=== PATIENT | female | born 1980 | race Caucasian/White ===

== ENCOUNTER 2018-03-05 15:39 | Emergency (ER) | payer BC ==
[2018-03-05 15:39] VITALS: BMI 28.0
[2018-03-05 17:22] LABS: BASO % 0.5 % (0.0-2.0); EOS # 0.1 K/uL (0.0-0.7); EOS % 0.9 % (0.0-4.0); HEMOGLOBIN 12.1 g/dL (11.0-16.0); LYMPH # 1.6 K/uL (1.0-4.3); MEAN CELL VOLUME 92.1 fL (81.0-99.0); MEAN CORPUSCULAR HEMOGLOBIN 32.4 pg (27.0-31.0); MEAN CORPUSCULAR HGB CONC 35.1 g/dL (33.0-37.0); MEAN PLATELET VOLUME 7.7 fL (7.2-11.7); MONO # 0.5 K/uL (0.0-0.8); MONO % 6.3 % (0.0-10.0); NEUT # 6.4 K/uL (1.8-7.0); NEUT % 74.3 % (50.0-75.0); NRBC % 0.1 % (0.0-2.0); RBC 3.74 Mil/uL (3.80-5.20); RED CELL DISTRIBUTION WIDTH 13.9 % (11.5-14.5); WHITE BLOOD COUNT 8.6 K/uL (4.8-10.8)
[2018-03-05 17:23] LABS: HCG,QUALITATIVE URINE POSITIVE (NEGATIVE)
--- NOTE | 2018-03-05 17:26 | C.PDOC ---
History Of Present Illness <Merlyn Hope - Last Filed: 03/05/18 19:13> <Mariam Ahmadi - Last Filed: 03/05/18 20:56> <Cam Persaud - Last Filed: 03/07/18 13:35> 38 y/o female A1 17 weeks presents to ED with c/o right lower back pain radiating to right leg and pelvis since this noon today. Pt notes the pain is worse with movement. She has had pre wyatt care with Dr. Dorman. Denies trauma, dysuria, vaginal bleeding/discharge, fever, change in sensation, incontinence, nausea, vomiting or any other complaints at this time. (Merlyn Hope) 38 y/o female A1 17 weeks presents to ED with c/o right lower back pain radiating to right leg and pelvis since this noon today. Pt notes the pain is worse with movement. She has had pre care with Dr. Dorman. Denies trauma, dysuria, vaginal bleeding/discharge, fever, change in sensation, incontinence, nausea, vomiting or any other complaints at this time. (Mariam Ahmadi) 38 y/o female A1 17 weeks presents to ED with c/o right lower back pain radiating to right leg and pelvis since this noon today. Pt notes the pain is worse with movement. She has had pre care with Dr. Dorman. Denies trauma, dysuria, vaginal bleeding/discharge, fever, change in sensation, incontinence, nausea, vomiting or any other complaints at this time. (Cam Persaud) History Per: Patient History/Exam Limitations: no limitations Onset/Duration Of Symptoms: Days Current Symptoms Are (Timing): Still Present <Merlyn Hope - Last Filed: 03/05/18 19:13> <Mariam Ahamdi - Last Filed: 03/05/18 20:56> <Cam Persaud - Last Filed: 03/07/18 13:35> Time Seen by Provider: 03/05/18 16:17 Chief Complaint (Nursing): Abdominal Pain Past Medical History Reviewed: Historical Data, Nursing Documentation, Vital Signs - Medical History PMH: No Chronic Diseases Surgical History: No Surg Hx Family History: States: No Known Family Hx - Social History Hx Tobacco Use: No Hx Alcohol Use: No Hx Substance Use: No - Immunization History Hx Tetanus Toxoid Vaccination: Yes Hx Influenza Vaccination: Yes Hx Pneumococcal Vaccination: No <Merlyn Hope - Last Filed: 03/05/18 19:13> Vital Signs: Last Vital Signs Temp 98.4 F 03/05/18 21:21 Pulse 91 H 03/05/18 21:21 Resp 14 03/05/18 21:21 BP 101/59 L 03/05/18 21:21 Pulse Ox 98 03/05/18 21:21 - [facility] Procedures DELIVERY OF PRODUCTS OF CONCEPTION, EXTERNAL APPROACH (09/28/15) DIVISION OF FEMALE PERINEUM, EXTERNAL APPROACH (09/28/15) Review Of Systems Constitutional: Negative for: Fever, Chills Gastrointestinal: Positive for: Abdominal Pain. Negative for: Nausea, Vomiting Musculoskeletal: Positive for: Back Pain, Leg Pain Skin: Negative for: Rash <Merlyn Hope - Last Filed: 03/05/18 19:13> Physical Exam - Physical Exam Appears: Non-toxic, No Acute Distress Skin: Warm, Dry, No Rash Head: Atraumatic, Normacephalic Eye(s): bilateral: Normal Inspection, EOMI Nose: Normal Oral Mucosa: Moist Neck: Normal ROM, Supple Chest: Symmetrical Cardiovascular: Rhythm Regular Respiratory: Normal Breath Sounds, No Rales, No Rhonchi, No Wheezing Gastrointestinal/Abdominal: Soft, Tenderness (Right pelvic), No Guarding, No Rebound, Other (gravid abdomen consistent with dates) Back: No CVA Tenderness, No Vertebral Tenderness, Paraspinal Tenderness ((+) right buttock tenderness) Extremity: Normal ROM, Capillary Refill (<2 seconds), No Deformity Neurological/Psych: Oriented x3, Normal Speech, Normal Cognition <Merlyn Hope - Last Filed: 03/05/18 19:13> ED Course And Treatment - Laboratory Results Result Diagrams: 03/05/18 17:12 03/05/18 17:12 O2 Sat by Pulse Oximetry: 95 (RA) Pulse Ox Interpretation: Normal Progress Note: Blood work, UA, Pelvis US. Pt was seen and evaluated by Dr Persaud, agreed upon plan and treatment. Case endorsed to Dr Ahmadi pending US and re-evaluation. <Merlyn Hope - Last Filed: 03/05/18 19:13> - Laboratory Results Result Diagrams: 03/05/18 17:12 03/05/18 17:12 Pulse Ox Interpretation: Normal Reevaluation Time: 20:56 Reassessment Condition: Improved <Mariam Ahmadi - Last Filed: 03/05/18 20:56> - Laboratory Results Result Diagrams: 03/05/18 17:12 03/05/18 17:12 <Cam Persaud - Last Filed: 03/07/18 13:35> Medical Decision Making <Merlyn Hope - Last Filed: 03/05/18 19:13> <Mariam Ahmadi - Last Filed: 03/05/18 20:56> <Cam Persaud - Last Filed: 03/07/18 13:35> Medical Decision Making: case s/o to Dr. Ahmadi at 1900 (Cam Persaud) Disposition - Disposition Disposition Time: 18:58 <Merlyn Hope - Last Filed: 03/05/18 19:13> Counseled Patient/Family Regarding: Studies Performed, Diagnosis, Need For Followup <Mariam Ahmadi - Last Filed: 03/05/18 20:56> <Cam Persaud - Last Filed: 03/07/18 13:35> - Disposition Disposition: HOME/ ROUTINE Condition: STABLE Additional Instructions: Vaya a small mdico o la clnica en 2-5 mosquera sin falta, para mas evaluacin. Volver a la kunal de emergencia en cualquier momento si los sntomas persisten o empeoran. Prescriptions: Acetaminophen [Tylenol 325mg tab] 650 mg PO Q4 PRN #20 tab PRN Reason: Pain, Mild (1-3) Instructions: Low Back Pain (DC) Forms: [employer] (Tajik) Print Language: CROATIAN - Clinical Impression Clinical Impression: Abdominal pain, Back pain - PA / STORE LEADER / Resident Statement MD/DO has reviewed & agrees with the documentation as recorded. - Scribe Statement The provider has reviewed the documentation as recorded by the Scribe <Merlyn Hope - Last Filed: 03/05/18 19:13> <Mariam Ahmadi - Last Filed: 03/05/18 20:56> <Cam Persaud - Last Filed: 03/07/18 13:35> - Scribe Statement Bryan Nevarezta All medical record entries made by the Scribe were at my direction and personally dictated by me. I have reviewed the chart and agree that the record accurately reflects my personal performance of the history, physical exam, medical decision making, and the department course for this patient. I have also personally directed, reviewed, and agree with the discharge instructions and disposition. (Merlyn Hope) Yuditesfaye Peña All medical record entries made by the Scribe were at my direction and personally dictated by me. I have reviewed the chart and agree that the record accurately reflects my personal performance of the history, physical exam, medical decision making, and the department course for this patient. I have also personally directed, reviewed, and agree with the discharge instructions and disposition. (Mariam Ahmadi) Bryan Peña All medical record entries made by the Scribe were at my direction and personally dictated by me. I have reviewed the chart and agree that the record accurately reflects my personal performance of the history, physical exam, medical decision making, and the department course for this patient. I have also personally directed, reviewed, and agree with the discharge instructions and disposition. (Cam Persaud)
[2018-03-05 17:30] LABS: SQUAMOUS EPITHIAL 22 /hpf (0-5); URINE BACTERIA OCC (<OCC); URINE BILIRUBIN NEGATIVE (NEGATIVE); URINE BLOOD 1+ (NEGATIVE); URINE CALCIUM OXALATE CRYSTALS OCC /hpf (<OCC); URINE CLARITY Hazy (Clear); URINE COLOR Yellow (YELLOW); URINE GLUCOSE (UA) NORMAL (Normal); URINE LEUKOCYTE ESTERASE 1+ Leu/uL (Negative); URINE PROTEIN NEGATIVE (NEGATIVE); URINE UROBILINOGEN NORMAL mg/dL (0.2-1.0)
[2018-03-05 17:36] LABS: ALB/GLOB RATIO 1.1 (1.0-2.1); ALBUMIN 3.5 g/dL (3.5-5.0); ALT/SGPT 12 U/L (9-52); AST/SGOT 13 U/L (14-36); BLOOD UREA NITROGEN 5 mg/dL (7-17); CALCIUM 8.8 mg/dl (8.6-10.4); GFR NON-AFRICAN AMERICAN > 60
--- NOTE | 2018-03-05 18:29 | US ---
Date of service: 03/05/2018 PROCEDURE: OB Pelvic Ultrasound HISTORY: preg, pain right sided LMP: 10/29/2017 COMPARISON: None available. FINDINGS: UTERUS: Placenta: Posterior Presentation: Cephalic BPD: 4.1 cm compatible with estimated gestational age of 18 weeks, 4 days HC: 15.2 cm compatible with estimated gestational age of 18 weeks, 2 days AC: 12.7 cm compatible with estimated gestational age of 18 weeks, 2 days FL: 2.8 cm compatible with estimated gestational age of 18 weeks, 4 days Heart rate: 130 bpm. age (Ultrasound estimated): 18 weeks, 3 days Erin-gestational hemorrhage: None. Date of delivery (Ultrasound estimated) : 08/03/2018 CERVIX: Measures 4.5 cm. Long and closed. No cervical abnormality seen. FREE FLUID: None. OTHER FINDINGS: None. IMPRESSION: Single live intrauterine gestation with average ultrasound age of 18 weeks, 3 days. heart rate 131 beats per minute. Cervix long and closed.
[2018-03-05 21:22] VITALS: BP 101/59; PULSE 91; RESP 14; TEMP 98.4; O2SAT 98
--- NOTE | 2018-03-06 09:50 | US ---
Date of service: 03/05/2018 PROCEDURE: Ultrasound of the Kidneys HISTORY: pain COMPARISON: None available. TECHNIQUE: Sonogram of the kidneys. FINDINGS: RIGHT KIDNEY: Measures: 11.8 cm. Normal in size, contour and echogenicity. No stone, solid mass lesion or hydronephrosis visualized. LEFT KIDNEY: Measures: 11.8 cm. Normal in size, contour and echogenicity. No stone, solid mass lesion or hydronephrosis visualized. OTHER FINDINGS: Urinary bladder poorly distended. Limited evaluation. IMPRESSION: Unremarkable renal sonogram.
== END 2018-03-05 21:22 | disposition home or self-care (01) ==
LOC: C.ER 15:39
DX: O26.892 Other specified pregnancy related conditions, second trimester (principal); M54.5 Low back pain; R10.9 Unspecified abdominal pain; Z3A.17 17 weeks gestation of pregnancy

== ENCOUNTER 2018-03-07 16:27 | Inpatient (IN) | payer BC ==
[2018-03-07 16:31] VITALS: BMI 24.4
[2018-03-07] MEDS ORDERED: Sodium Chloride 0.9% 1,000 ML IV ONE ×2 (16:47→19:33)
[2018-03-07 17:10] LABS: BASO # 0.1 K/uL (0.0-0.2); BASO % 0.7 % (0.0-2.0); EOS # 0.1 K/uL (0.0-0.7); EOS % 0.5 % (0.0-4.0); HEMOGLOBIN 12.7 g/dL (11.0-16.0); LYMPH # 2.2 K/uL (1.0-4.3); LYMPH % 17.2 % (20.0-40.0); MEAN CELL VOLUME 92.9 fL (81.0-99.0); MEAN CORPUSCULAR HEMOGLOBIN 32.8 pg (27.0-31.0); MEAN CORPUSCULAR HGB CONC 35.3 g/dL (33.0-37.0); MEAN PLATELET VOLUME 7.4 fL (7.2-11.7); MONO # 0.6 K/uL (0.0-0.8); MONO % 4.8 % (0.0-10.0); NEUT # 9.7 K/uL (1.8-7.0); NEUT % 76.8 % (50.0-75.0); NRBC % 0.1 % (0.0-2.0); RBC 3.87 Mil/uL (3.80-5.20); RED CELL DISTRIBUTION WIDTH 13.9 % (11.5-14.5); WHITE BLOOD COUNT 12.6 K/uL (4.8-10.8)
[2018-03-07] MEDS ORDERED: Sodium Chloride 0.9% 1,000 ML ONE ×2 (17:11→19:52)
[2018-03-07] MEDS ORDERED: Morphine 4 MG/ML VIAL ONE ×3 (17:12→19:05)
[2018-03-07 17:28] LABS: ALB/GLOB RATIO 1.1 (1.0-2.1); ALBUMIN 3.8 g/dL (3.5-5.0); ALT/SGPT 19 U/L (9-52); AST/SGOT 15 U/L (14-36); BLOOD UREA NITROGEN 7 mg/dL (7-17); CALCIUM 8.9 mg/dl (8.6-10.4); GFR NON-AFRICAN AMERICAN > 60; LIPASE 54 U/L (23-300)
--- NOTE | 2018-03-07 18:12 | C.PDOC ---
History Of Present Illness 38 year old female 18 weeks presents to the ED for evaluation of worsening right lower quadrant pain since today. Reports she was pain free yesterday but today is in severe distress with no improvement. Pain is dull, aching, and boring. Grabs abdomen due pain. Patient previously had a pelvic ultrasound 03/05 at 18 weeks and a renal ultrasound which both appeared normal, without renal hydronephrosis. Denies vaginal bleeding, fever, and any other associated symptoms. Time Seen by Provider: 03/07/18 16:40 Chief Complaint (Nursing): Abdominal Pain History Per: Patient History/Exam Limitations: no limitations Onset/Duration Of Symptoms: Hrs Current Symptoms Are (Timing): Still Present Location Of Pain/Discomfort: RLQ Past Medical History Reviewed: Historical Data, Nursing Documentation, Vital Signs Vital Signs: Last Vital Signs Temp 98.4 F 03/07/18 16:49 Pulse 81 03/07/18 17:25 Resp 18 03/07/18 17:25 BP 104/66 03/07/18 16:49 Pulse Ox 98 03/07/18 17:25 - Medical History PMH: Denies: Chronic Kidney Disease - [facility] Procedures DELIVERY OF PRODUCTS OF CONCEPTION, EXTERNAL APPROACH (09/28/15) DIVISION OF FEMALE PERINEUM, EXTERNAL APPROACH (09/28/15) Family History: States: Unknown Family Hx - Social History Hx Tobacco Use: No Hx Alcohol Use: No Hx Substance Use: No - Immunization History Hx Tetanus Toxoid Vaccination: Yes Hx Influenza Vaccination: Yes Hx Pneumococcal Vaccination: No Review Of Systems Except As Marked, All Systems Reviewed And Found Negative. Constitutional: Positive for: Other (grabs belly due to pain). Negative for: Fever, Chills Gastrointestinal: Positive for: Vomiting, Abdominal Pain (right lower quadrant ) Genitourinary: Negative for: Vaginal Bleeding Physical Exam - Physical Exam Appears: Non-toxic, In Acute Distress Skin: Normal Color, Warm, Dry Head: Atraumatic, Normacephalic Eye(s): bilateral: Normal Inspection Oral Mucosa: Moist Neck: Normal ROM Chest: Symmetrical, No Deformity Cardiovascular: Rhythm Regular Respiratory: Other (no acute respiratory distress.) Gastrointestinal/Abdominal: Tenderness (right lower quadrant tenderness. ), Other (+mcburney's point tenderness.) Extremity: Normal ROM (x4) Neurological/Psych: Oriented x3, Normal Speech Gait: Steady ED Course And Treatment - Laboratory Results Result Diagrams: 03/07/18 17:06 03/07/18 17:06 Lab Interpretation: Abnormal (WBC increased from 9K, QHCG increased [id number] to [id number], UA neg.) Urine POC: Positive O2 Sat by Pulse Oximetry: 98 (RA) Pulse Ox Interpretation: Normal - CT Scan/US U/S ABD Other Rad Studies (CT/US): Read By Radiologist CT/US Interpretation: FINDINGS: The appendix is not visible. No abnormal fluid collections or masses identified. Progress Note: multiple round of morphine 4 mg to control pain, IVF Reevaluation Time: 20:34 Reassessment Condition: Improved - Physician Consult Information Outcome Of Conversation: 1899: d/w OBGYN Mr Teacher- will eval after OB US performed, recommends Surg consult and MRI to r/o AP Medical Decision Making Medical Decision Making: Plan: --Blood sent. --Urinalysis --U/S Limited Abdomen --U/S Pelvis --Given Morphine. Progress/Update: 1649: Discussed case with [employer] Work Supervisor, advised acute abdomen in women. She recommends order Limited right lower quadrant ultra sound to r/o AP and will f/u with pt. 2100: Surgical Max @ bedside, agrees, pt severe RLQ pain. Zosyn, IVF's 2144: d/w Dr. Yudi Jacobsen, Surgery Mr Teacher- declines to adm pt to Surgical service, will consult, supports MRI in AM Understands normal IUP noted on US tonight. 2149: Again, d/w Dr. Ross- OB Mr Teacher, declines to admit pt with suspected AP, will consult. Again, reaffirms no acute related issue. 2199: D/w Dr. Devine- Surgical- suggest adm pt to Medicine. Cannot accept pt on Consult, has AM surgery other institution 2219: d/w Dr. Queen, Hospitalist- cannot adm pt to Medicine without acute medical issue. Will consult PRN. 2229: Call to Dr. Knapp- Surgery Chair- pending call-back 2299: d/w Dr. Knapp, agrees pt admitted to Dr. Farhad Jacobsen (Surgeon Mr Teacher) and shall remain admitted to Dr. Yudi Jacobsen who shall manage this pt. May consult OBGYN. [employer] Work Supervisor again aware. Decision makin: No blood in urine and no h/o renal colic. LOW susp of R renal colic- normal renal US 2 days ago and no RBC's in urine, pain is boring and dull and not colicky, argue against renal colic. With normal IUP, no ectopic, no renal colic, and rising white count, highly suspicious for acute AP until proven otherwise. Zosyn started empirically. Unable to perform STAT MRI tonight, Pending MRI in AM Pt admitted initially to Dr. Yudi Jacobsen, later rescinded. Later supported to Admit to Surgeon Mr Teacher by Dr. Knapp, Surgical Chair Disposition Doctor Will See Patient In The: Hospital Counseled Patient/Family Regarding: Studies Performed, Diagnosis - Disposition Disposition: HOSPITALIZED Disposition Time: 21:00 Condition: FAIR - Clinical Impression Clinical Impression: Acute abdominal pain in right lower quadrant, with 18 completed weeks gestation - Scribe Statement The provider has reviewed the documentation as recorded by the Scribe (Ana Moran) Provider Attestation: All medical record entries made by the Scribe were at my direction and personally dictated by me. I have reviewed the chart and agree that the record accurately reflects my personal performance of the history, physical exam, medical decision making, and the department course for this patient. I have also personally directed, reviewed, and agree with the discharge instructions and disposition.
--- NOTE | 2018-03-07 18:19 | US ---
Date of service: 03/07/2018 PROCEDURE: Limited abdominal ultrasound HISTORY: RLQ, ? AP, limited US COMPARISON: None available. TECHNIQUE: Graded compression technique complete for assessment of the right lower quadrant FINDINGS: The appendix is not visible. No abnormal fluid collections or masses identified. IMPRESSION: Nonvisualization of the appendix. No significant findings identified.
[2018-03-07] MEDS ORDERED: Piperacill/Tazo 3.375gm in Dex 3.375 GM/50 ML BAG IVPB STA (20:28)
[2018-03-07 20:45] LABS: SQUAMOUS EPITHIAL < 1 /hpf (0-5); URINE BILIRUBIN NEGATIVE (NEGATIVE); URINE BLOOD NEGATIVE (NEGATIVE); URINE CLARITY Clear (Clear); URINE COLOR Yellow (YELLOW); URINE GLUCOSE (UA) NORMAL (Normal); URINE LEUKOCYTE ESTERASE NEG Leu/uL (Negative); URINE PROTEIN NEGATIVE (NEGATIVE); URINE UROBILINOGEN NORMAL mg/dL (0.2-1.0)
[2018-03-07] MEDS ORDERED: Piperacillin/Tazobact 3.375 gm 100 ML IVPB ONE (20:51)
[2018-03-07 22:24] VITALS: RESP 20
[2018-03-07] MEDS: Dextrose 5%/0.45% NS 1,000 ML IV SCH (22:46)
[2018-03-07] MEDS: Piperacillin/Tazobact 3.375 GM in Sodium Chloride 100 ML IVPB SCH (22:51)
--- NOTE | 2018-03-07 23:31 | CP.PCM.HP ---
<Denise Lozano - Last Filed: 03/08/18 00:33> History of Present Illness - History of Present Illness History of Present Illness: Surgery 38F 18 week came with RLQ abd pain. Pain started 3 days ago. Pt came to ED 3 days ago for R sided pain. UA showed Blood, RBC, leuk esterase, Oxalate crystals. PT was sent home. Pt came with persistent R sided pain. locared on RLQ and R back radiating to R leg. Reports nausea vomiting. PT had 3 episodes of vomiting. NOn bloody non bilious. Denies fever, diarrhea, CP, SOB, dysuria, hematuria, hematochezia, hematemesis, sick contact. Pt came from [place] in 2016. Ate spagghetti yesterday. Now pt is hungry and wishes to eat. Pt had ectopic in 2011 and had laparoscopic L salphingectomy per EMR. Pt reports that this is the first time having these symptoms. Pt had 2 vaginal delivery in the past in 2000 she had delivery at 3.5 month per chart. During this admission WBC is 12.6 and UA shows ketone. Pt had 12 mg of morphine in ED for pain. Zosyn started. PMH : delivery at 3.5 month, ectopic . UTI GBS PSH : laparoscopic L saphingectomy for ectopic in 2011, I and D of perineum for hematoma s/p delivery in 2015. FHX: Son at 9 month for pulmonary issues, father of blood cancer, sister breast CA SS: non smoker, non drinker, no drug abuse. Present on Admission - Present on Admission Any Indicators Present on Admission: No Review of Systems - Review of Systems Review of Systems: See HPI Past Patient History - Infectious Disease Hx of Infectious Diseases: None - Tetanus Immunizations Tetanus Immunization: Unknown - Past Social History Smoking Status: Never Smoked - CARDIAC Hx Cardiac Disorders: No - PULMONARY Hx Respiratory Disorders: No - NEUROLOGICAL Hx Neurological Disorder: No - HEENT Hx HEENT Problems: No - RENAL Hx Chronic Kidney Disease: No - ENDOCRINE/METABOLIC Hx Endocrine Disorders: No - HEMATOLOGICAL/ONCOLOGICAL Hx Blood Disorders: No - INTEGUMENTARY Hx Dermatological Problems: No - MUSCULOSKELETAL/RHEUMATOLOGICAL Hx Musculoskeletal Disorders: No - GASTROINTESTINAL Hx Gastrointestinal Disorders: No - GENITOURINARY/GYNECOLOGICAL Hx Genitourinary Disorders: No - PSYCHIATRIC Hx Substance Use: No - SURGICAL HISTORY Hx Surgeries: Yes Other/Comment: 2011, laparoscopic salpingectomy - ANESTHESIA Hx Anesthesia: Yes Hx Anesthesia Reactions: No Meds Allergies/Adverse Reactions: Allergies Allergy/AdvReac Type Severity Reaction Status Date / Time No Known Allergies Allergy Verified 03/07/18 16:31 Physical Exam - Constitutional Appears: In Acute Distress - Head Exam Head Exam: ATRAUMATIC, NORMAL INSPECTION, NORMOCEPHALIC - Eye Exam Eye Exam: EOMI, Normal appearance, PERRL Pupil Exam: NORMAL ACCOMODATION, PERRL - ENT Exam ENT Exam: Mucous Membranes Moist, Normal Exam - Neck Exam Neck exam: Positive for: Normal Inspection - Respiratory Exam Respiratory Exam: NORMAL BREATHING PATTERN - Cardiovascular Exam Cardiovascular Exam: REGULAR RHYTHM, +S1, +S2 - GI/Abdominal Exam GI & Abdominal Exam: Soft, Tenderness. absent: Distended, Firm, Guarding, Hernia, Pulsatile Mass, Rigid Additional comments: Gravid abdomen, fundus at umbilicus. RLQ TTP, R back TTP. - Exam Exam: NORMAL INSPECTION - Extremities Exam Extremities exam: Positive for: full ROM, normal inspection - Back Exam Back exam: NORMAL INSPECTION, tenderness - Neurological Exam Neurological exam: Alert, CN II-XII Intact, Normal Gait, Oriented x3, Reflexes Normal - Psychiatric Exam Psychiatric exam: Normal Affect, Normal Mood - Skin Skin Exam: Dry, Intact, Normal Color, Warm Results - Vital Signs Recent Vital Signs: Last Vital Signs Temp 98.7 F 03/07/18 22:05 Pulse 84 03/07/18 22:05 Resp 20 03/07/18 22:05 BP 103/64 03/07/18 22:05 Pulse Ox 98 03/07/18 23:16 - Labs Result Diagrams: 03/07/18 17:06 03/07/18 17:06 Labs: Laboratory Results - last 24 hr 03/07/18 03/07/18 03/07/18 17:06 17:06 17:06 WBC 12.6 H RBC 3.87 Hgb 12.7 Hct 36.0 MCV 92.9 MCH 32.8 H MCHC 35.3 RDW 13.9 Plt Count 260 MPV 7.4 Neut % (Auto) 76.8 H Lymph % (Auto) 17.2 L [place] % (Auto) 4.8 Eos % (Auto) 0.5 Baso % (Auto) 0.7 Neut # (Auto) 9.7 H Lymph # (Auto) 2.2 [place] # (Auto) 0.6 Eos # (Auto) 0.1 Baso # (Auto) 0.1 Sodium 136 Potassium 3.6 Chloride 103 Carbon Dioxide 20 L Anion Gap 16 BUN 7 Creatinine 0.4 L Est GFR ( Amer) > 60 Est GFR (Non-Af Amer) > 60 Random Glucose 97 Lactic Acid 2.6 H Calcium 8.9 Total Bilirubin 0.2 AST 15 ALT 19 Alkaline Phosphatase 75 Total Protein 7.2 Albumin 3.8 Globulin 3.4 Albumin/Globulin Ratio 1.1 Lipase 54 Beta HCG, Quant Urine Color Urine Clarity Urine pH Ur Specific [place] Urine Protein Urine Glucose (UA) Urine Ketones Urine Blood Urine Nitrate Urine Bilirubin Urine Urobilinogen Ur Leukocyte Esterase Urine RBC (Auto) Ur Squamous Epith Cells 03/07/18 03/07/18 17:06 20:35 WBC RBC Hgb Hct MCV MCH MCHC RDW Plt Count MPV Neut % (Auto) Lymph % (Auto) [place] % (Auto) Eos % (Auto) Baso % (Auto) Neut # (Auto) Lymph # (Auto) [place] # (Auto) Eos # (Auto) Baso # (Auto) Sodium Potassium Chloride Carbon Dioxide Anion Gap BUN Creatinine Est GFR ( Amer) Est GFR (Non-Af Amer) Random Glucose Lactic Acid Calcium Total Bilirubin AST ALT Alkaline Phosphatase Total Protein Albumin Globulin Albumin/Globulin Ratio Lipase Beta HCG, Quant 28805.00 Urine Color Yellow Urine Clarity Clear Urine pH 7.0 Ur Specific [place] 1.014 Urine Protein Negative Urine Glucose (UA) Normal Urine Ketones 1+ H Urine Blood Negative Urine Nitrate Negative Urine Bilirubin Negative Urine Urobilinogen Normal Ur Leukocyte Esterase Neg Urine RBC (Auto) 2 Ur Squamous Epith Cells < 1 Assessment & Plan - Assessment and Plan (Free Text) Assessment: 38 F geriatric high risk preganancy 18 week gestational age came with RLQ pain started 3 days ago DDX: passed renal stone, r/o appendicitis, round ligament pain, cutaneous nerve entrapment, Ovarian vein thrombophlebitis, UTI With h/o delivery at 3.5 month (15week) in 2012, h/o ectopic and being geriatric pregancy, pt is high risk for surgery requiring general anesthesia women were less likely to have appendicitis than age-matched, non women. Nausea, vomiting common features of early . Afebrile . VSS US reviewed. shows 18 week , appendix unvisualized. No free fluids. UA 03/05 blood, oxalate crystal, Leuk esterase, bacteria UA 03/07 ketone WBC 12.6 : Mild leukocytosis in is normal finding in women ( normal range 10-14k for pt). Leukocytosis may or may not be a sign of acute appendicitis in pt. MRI NPO IVF D5 1/2 NS @100 ABX zosyn NGT if vomits Intake and output Pain/nausea control OB consult DW Dr. Jacobsen <Alejandra Jacobsen - Last Filed: 03/09/18 08:41> Results - Vital Signs Recent Vital Signs: Last Vital Signs Temp 98.1 F 03/09/18 07:41 Pulse 73 03/09/18 07:41 Resp 20 03/09/18 07:41 BP 102/65 03/09/18 07:41 Pulse Ox 97 03/09/18 07:41 - Labs Result Diagrams: 03/08/18 07:21 03/08/18 07:21 Assessment & Plan - Assessment and Plan (Free Text) Plan: Seen and examined independent of resident staff. Agree with above
--- NOTE | 2018-03-07 23:58 | CP.PCM.CON ---
History of Present Illness - History of Present Illness History of Present Illness: 38 yr [id number] tenderness on right lowe quad at 18+weeks came with c/o rlq pain started in morning., ptr was here 3 days fabby olgauth same pqain. no n/v, no ctxs, vb , lof+fm obhx 2 x , 1 x ectopic pmh de med pnv all nkda psh lap salpingectomy soch de ve closed wbc elevated abd +tenderness on right lower quad Past Patient History - Infectious Disease Hx of Infectious Diseases: None - Tetanus Immunizations Tetanus Immunization: Unknown - Past Social History Smoking Status: Never Smoked - CARDIAC Hx Cardiac Disorders: No - PULMONARY Hx Respiratory Disorders: No - NEUROLOGICAL Hx Neurological Disorder: No - HEENT Hx HEENT Problems: No - RENAL Hx Chronic Kidney Disease: No - ENDOCRINE/METABOLIC Hx Endocrine Disorders: No - HEMATOLOGICAL/ONCOLOGICAL Hx Blood Disorders: No - INTEGUMENTARY Hx Dermatological Problems: No - MUSCULOSKELETAL/RHEUMATOLOGICAL Hx Musculoskeletal Disorders: No - GASTROINTESTINAL Hx Gastrointestinal Disorders: No - GENITOURINARY/GYNECOLOGICAL Hx Genitourinary Disorders: No - PSYCHIATRIC Hx Substance Use: No - SURGICAL HISTORY Hx Surgeries: Yes Other/Comment: 2011, laparoscopic salpingectomy - ANESTHESIA Hx Anesthesia: Yes Hx Anesthesia Reactions: No Meds Allergies/Adverse Reactions: Allergies Allergy/AdvReac Type Severity Reaction Status Date / Time No Known Allergies Allergy Verified 03/07/18 16:31 - Medications Medications: Current Medications Acetaminophen (Tylenol 325mg Tab) 650 mg PO Q6 PRN PRN Reason: Fever >100.4 F Dextrose/Sodium Chloride (Dextrose 5%/0.45% Ns 1000 Ml) 1,000 mls @ 100 mls/hr IV .Q10H [facility] Last Admin: 03/07/18 22:46 Dose: 100 mls/hr Piperacillin Sod/Tazobactam (Sod 3.375 gm/ Sodium Chloride) 100 mls @ 200 mls/hr IVPB Q8H [facility]; Protocol Last Admin: 03/07/18 22:51 Dose: Not Given Morphine Sulfate (Morphine) 2 mg IVP Q4 PRN PRN Reason: Pain, moderate (4-7) Ondansetron HCl (Zofran Inj) 4 mg IVP Q4 PRN PRN Reason: Nausea/Vomiting Results - Vital Signs Recent Vital Signs: Last Vital Signs Temp 98.7 F 03/07/18 22:05 Pulse 84 03/07/18 22:05 Resp 20 03/07/18 22:05 BP 103/64 03/07/18 22:05 Pulse Ox 98 03/07/18 23:16 - Labs Result Diagrams: 03/07/18 17:06 03/07/18 17:06 Labs: Laboratory Results - last 24 hr 03/07/18 03/07/18 03/07/18 17:06 17:06 17:06 WBC 12.6 H RBC 3.87 Hgb 12.7 Hct 36.0 MCV 92.9 MCH 32.8 H MCHC 35.3 RDW 13.9 Plt Count 260 MPV 7.4 Neut % (Auto) 76.8 H Lymph % (Auto) 17.2 L [place] % (Auto) 4.8 Eos % (Auto) 0.5 Baso % (Auto) 0.7 Neut # (Auto) 9.7 H Lymph # (Auto) 2.2 [place] # (Auto) 0.6 Eos # (Auto) 0.1 Baso # (Auto) 0.1 Sodium 136 Potassium 3.6 Chloride 103 Carbon Dioxide 20 L Anion Gap 16 BUN 7 Creatinine 0.4 L Est GFR ( Amer) > 60 Est GFR (Non-Af Amer) > 60 Random Glucose 97 Lactic Acid 2.6 H Calcium 8.9 Total Bilirubin 0.2 AST 15 ALT 19 Alkaline Phosphatase 75 Total Protein 7.2 Albumin 3.8 Globulin 3.4 Albumin/Globulin Ratio 1.1 Lipase 54 Beta HCG, Quant Urine Color Urine Clarity Urine pH Ur Specific [place] Urine Protein Urine Glucose (UA) Urine Ketones Urine Blood Urine Nitrate Urine Bilirubin Urine Urobilinogen Ur Leukocyte Esterase Urine RBC (Auto) Ur Squamous Epith Cells 03/07/18 03/07/18 17:06 20:35 WBC RBC Hgb Hct MCV MCH MCHC RDW Plt Count MPV Neut % (Auto) Lymph % (Auto) [place] % (Auto) Eos % (Auto) Baso % (Auto) Neut # (Auto) Lymph # (Auto) [place] # (Auto) Eos # (Auto) Baso # (Auto) Sodium Potassium Chloride Carbon Dioxide Anion Gap BUN Creatinine Est GFR ( Amer) Est GFR (Non-Af Amer) Random Glucose Lactic Acid Calcium Total Bilirubin AST ALT Alkaline Phosphatase Total Protein Albumin Globulin Albumin/Globulin Ratio Lipase Beta HCG, Quant 35526.00 Urine Color Yellow Urine Clarity Clear Urine pH 7.0 Ur Specific [place] 1.014 Urine Protein Negative Urine Glucose (UA) Normal Urine Ketones 1+ H Urine Blood Negative Urine Nitrate Negative Urine Bilirubin Negative Urine Urobilinogen Normal Ur Leukocyte Esterase Neg Urine RBC (Auto) 2 Ur Squamous Epith Cells < 1 Assessment & Plan - Assessment and Plan (Free Text) Assessment: 38 yr at 18weeksNO OB issues cervix 4.5 cm ob sono Plan: plan cont surgical/medicl ,management r/o appendectis cont pain management repeat blood work will continue follow - Date & Time Date: 03/08/18 Time: 08:00
[2018-03-08] MEDS: Piperacillin/Tazobact 3.375 GM in Sodium Chloride 100 ML IVPB SCH ×4 (06:03→21:43)
[2018-03-08 07:34] LABS: BASO # 0.1 K/uL (0.0-0.2); BASO % 0.5 % (0.0-2.0); EOS # 0.1 K/uL (0.0-0.7); EOS % 0.6 % (0.0-4.0); HEMOGLOBIN 11.4 g/dL (11.0-16.0); LYMPH # 1.8 K/uL (1.0-4.3); LYMPH % 13.9 % (20.0-40.0); MEAN CELL VOLUME 93.4 fL (81.0-99.0); MEAN CORPUSCULAR HEMOGLOBIN 32.3 pg (27.0-31.0); MEAN CORPUSCULAR HGB CONC 34.5 g/dL (33.0-37.0); MEAN PLATELET VOLUME 8.3 fL (7.2-11.7); MONO # 0.6 K/uL (0.0-0.8); MONO % 4.8 % (0.0-10.0); NEUT # 10.3 K/uL (1.8-7.0); NEUT % 80.2 % (50.0-75.0); RBC 3.53 Mil/uL (3.80-5.20); RED CELL DISTRIBUTION WIDTH 13.6 % (11.5-14.5); WHITE BLOOD COUNT 12.8 K/uL (4.8-10.8)
[2018-03-08 08:15] LABS: ALBUMIN 3.1 g/dL (3.5-5.0); ALT/SGPT 16 U/L (9-52); AST/SGOT 11 U/L (14-36); BLOOD UREA NITROGEN 3 mg/dL (7-17); CALCIUM 8.4 mg/dl (8.6-10.4); GFR NON-AFRICAN AMERICAN > 60
[2018-03-08] MEDS: Dextrose 5%/0.45% NS 1,000 ML IV SCH ×3 (08:16→17:27)
--- NOTE | 2018-03-08 10:02 | MRI ---
Date of service: 03/08/2018 PROCEDURE: MRI abdomen, limited. HISTORY: RLQ abd pain, ? AP COMPARISON: Not available TECHNIQUE: Multiplanar, multi sequence imaging of the abdomen was performed without intravenous gadolinium administration. FINDINGS: A fetus is identified in breech presentation. This is a 2nd trimester fetus. No gross anatomic abnormality is appreciated on this limited evaluation. The cervix is long and closed. A normal appendix is visualized. It is not distended. There is no periappendiceal inflammatory change or fluid collection. The cecum is unremarkable in appearance. The terminal ileum shows no abnormal signal. There is no gross evidence of bowel obstruction. There is no abnormal renal signal seen on the T2 weighted images. No evidence of pyelonephritis though this is of limited negative predictive value in the absence of intravenous gadolinium. The urinary bladder is poorly distended. The wall is grossly unremarkable in thickness. There is no pelvic lymphadenopathy. There is trace nonspecific ascites The ovaries are not specifically identified on this examination. There are no adnexal masses. IMPRESSION: No evidence of acute appendicitis. A normal appendix is identified. No additional pathologic diagnoses can be made on the basis of this examination. A 2nd trimester fetus is identified in breech presentation without gross anatomic abnormality. No adnexal masses.
--- NOTE | 2018-03-08 10:31 | US ---
Indication: , 18 weeks, right lower quadrant pain Comparison: OB limited performed 03/05/18 Technique: Real-time ultrasound was performed through the pelvis. Findings: There is a single living fetus in cephalic presentation. Amniotic fluid volume is within normal limits. Posterior placenta. The placenta is not previa. There are no adnexal masses or cysts evident. Cervix length measures approximately 4.5 cm. Small pelvic free fluid. Measurements and calculations: Fetus has a composite sonographic age of 18 weeks 4 days. This calculation is based on the biparietal diameter, head circumference, abdominal circumference, and femur length. Estimated heart rate 129 beats per min. Estimated weight 239.4 g. Impression: Single living fetus with a composite sonographic age of 18 weeks 4 days. Estimated heart rate 129 beats per min. The study was performed for the emergent evaluation of pain, and the whole anatomic survey of the fetus was not performed. This should be performed on an outpatient elective basis as clinically warranted. Preliminary impression was provided by [employer]on Lines.
[2018-03-08] MEDS: Lidocaine 5% Patch TD SCH (15:42)
--- NOTE | 2018-03-09 00:42 | CP.PCM.DIS ---
Provider - Provider Date of Admission: 03/07/18 20:29 Attending physician: Alejandra Jacobsen MD Consults: Dr Mare MIJARES Time Spent in preparation of Discharge (in minutes): 10 Hospital Course - Lab Results Lab Results: Most Recent Lab Values WBC 12.8 K/uL (4.8-10.8) H 03/08/18 07:21 RBC 3.53 Mil/uL (3.80-5.20) L 03/08/18 07:21 Hgb 11.4 g/dL (11.0-16.0) 03/08/18 07:21 Hct 32.9 % (34.0-47.0) L 03/08/18 07:21 MCV 93.4 fL (81.0-99.0) 03/08/18 07:21 MCH 32.3 pg (27.0-31.0) H 03/08/18 07:21 MCHC 34.5 g/dL (33.0-37.0) 03/08/18 07:21 RDW 13.6 % (11.5-14.5) 03/08/18 07:21 Plt Count 245 K/uL (130-400) 03/08/18 07:21 MPV 8.3 fL (7.2-11.7) 03/08/18 07:21 Neut % (Auto) 80.2 % (50.0-75.0) H 03/08/18 07:21 Lymph % (Auto) 13.9 % (20.0-40.0) L 03/08/18 07:21 [place] % (Auto) 4.8 % (0.0-10.0) 03/08/18 07:21 Eos % (Auto) 0.6 % (0.0-4.0) 03/08/18 07:21 Baso % (Auto) 0.5 % (0.0-2.0) 03/08/18 07:21 Neut # (Auto) 10.3 K/uL (1.8-7.0) H 03/08/18 07:21 Lymph # (Auto) 1.8 K/uL (1.0-4.3) 03/08/18 07:21 [place] # (Auto) 0.6 K/uL (0.0-0.8) 03/08/18 07:21 Eos # (Auto) 0.1 K/uL (0.0-0.7) 03/08/18 07:21 Baso # (Auto) 0.1 K/uL (0.0-0.2) 03/08/18 07:21 Sodium 135 mmol/L (132-148) 03/08/18 07:21 Potassium 3.7 mmol/L (3.6-5.2) 03/08/18 07:21 Chloride 106 mmol/L (98-107) 03/08/18 07:21 Carbon Dioxide 20 mmol/L (22-30) L 03/08/18 07:21 Anion Gap 12 (10-20) 03/08/18 07:21 BUN 3 mg/dL (7-17) L 03/08/18 07:21 Creatinine 0.4 mg/dL (0.7-1.2) L 03/08/18 07:21 Est GFR ( Amer) > 60 03/08/18 07:21 Est GFR (Non-Af Amer) > 60 03/08/18 07:21 Random Glucose 80 mg/dL (65-105) 03/08/18 07:21 Lactic Acid 1.2 mmol/L (0.7-2.1) 03/08/18 07:24 Calcium 8.4 mg/dl (8.6-10.4) L 03/08/18 07:21 Total Bilirubin 0.5 mg/dL (0.2-1.3) 03/08/18 07:21 AST 11 U/L (14-36) L D 03/08/18 07:21 ALT 16 U/L (9-52) 03/08/18 07:21 Alkaline Phosphatase 62 U/L (38-126) 03/08/18 07:21 Total Protein 6.1 g/dL (6.3-8.3) L 03/08/18 07:21 Albumin 3.1 g/dL (3.5-5.0) L 03/08/18 07:21 Globulin 3.0 gm/dL (2.2-3.9) 03/08/18 07:21 Albumin/Globulin Ratio 1.0 (1.0-2.1) 03/08/18 07:21 Lipase 54 U/L (23-300) 03/07/18 17:06 Beta HCG, Quant 13286.00 mIU/ML 03/07/18 17:06 Urine Color Yellow (YELLOW) 03/07/18 20:35 Urine Clarity Clear (Clear) 03/07/18 20:35 Urine pH 7.0 (5.0-8.0) 03/07/18 20:35 Ur Specific [place] 1.014 (1.003-1.030) 03/07/18 20:35 Urine Protein Negative mg/dL (NEGATIVE) 03/07/18 20:35 Urine Glucose (UA) Normal mg/dL (Normal) 03/07/18 20:35 Urine Ketones 1+ mg/dL (NEGATIVE) H 03/07/18 20:35 Urine Blood Negative (NEGATIVE) 03/07/18 20:35 Urine Nitrate Negative (NEGATIVE) 03/07/18 20:35 Urine Bilirubin Negative (NEGATIVE) 03/07/18 20:35 Urine Urobilinogen Normal mg/dL (0.2-1.0) 03/07/18 20:35 Ur Leukocyte Esterase Neg [place]/uL (Negative) 03/07/18 20:35 Urine RBC (Auto) 2 /hpf (0-3) 03/07/18 20:35 Ur Squamous Epith Cells < 1 /hpf (0-5) 03/07/18 20:35 - Hospital Course Hospital Course: Pt is a 38F who presented to ED with 3 days of RLQ pain accompanied by nausea and vomiting. Pt admitted for work-up given concern for appendicitis. Had Abdominal US which was non-diagnostic. Started on zosyn with IVF. Had MRI in AM which demonstrated normal appendix with no surrounding inflammation. HUMAN PERFORMANCE PROFESSOR was consulted who evaluated pt. Rec non-narcotic pain mgmt for "round ligament pain". No need for surgical intervention. Pt initially to be discharged but continued to complain of 10/10 pain, now complaining of pain in the head, back, legs, etc. Noted pt is frequently sleeping when enter the room. Does not appear in distress until questioned. Vitals have been normal. Not requiring pain medic ation. Will be d/c today with appropriate follow up with HUMAN PERFORMANCE PROFESSOR Discharge Exam - Head Exam Head Exam: ATRAUMATIC, NORMAL INSPECTION, NORMOCEPHALIC - Eye Exam Eye Exam: Normal appearance - ENT Exam ENT Exam: Normal Exam - Respiratory Exam Respiratory Exam: NORMAL BREATHING PATTERN - Cardiovascular Exam Cardiovascular Exam: REGULAR RHYTHM. absent: Tachycardia - GI/Abdominal Exam GI & Abdominal Exam: Soft, Tenderness (RLQ, suprapubic). absent: Distended, Firm - Neurological Exam Neurological exam: Alert, Oriented x3 Discharge Plan - Follow Up Plan Condition: GOOD Disposition: HOME/ ROUTINE
[2018-03-09 07:42] VITALS: BP 102/65; PULSE 73; TEMP 98.1; O2SAT 97
[2018-03-09] MEDS: Lidocaine 5% Patch TD SCH (10:20)
[2018-03-09] MEDS ORDERED: Influenza Vaccine 60 MCG/0.5 ML SYR (3 yr & up) IM ONE (12:00)
[2018-03-09] MEDS ORDERED: Pneumococcal 23-Valent Vaccine IM ONE (12:00)
--- NOTE | 2018-03-09 19:05 | CP.PCM.PN ---
<Mary Patel - Last Filed: 03/09/18 19:09> Subjective - Date & Time of Evaluation Date of Evaluation: 03/08/18 Time of Evaluation: 07:00 - Subjective Subjective: General surgery progress note for Dr. Marla Patel, PGY-2 Pt S & E at bedside Pt reports continued RLQ ab pain Objective - Vital Signs/Intake and Output Vital Signs (last 24 hours): Temp Pulse Resp BP Pulse Ox 98.1 F 73 20 102/65 97 03/09/18 07:41 03/09/18 07:41 03/09/18 07:41 03/09/18 07:41 03/09/18 07:41 - Labs Labs: 03/08/18 07:21 03/08/18 07:21 - Constitutional Appears: Non-toxic, No Acute Distress - Head Exam Head Exam: ATRAUMATIC, NORMAL INSPECTION, NORMOCEPHALIC - Eye Exam Eye Exam: EOMI, Normal appearance - ENT Exam ENT Exam: Mucous Membranes Moist, Normal Exam - Neck Exam Neck Exam: Full ROM, Normal Inspection - Respiratory Exam Respiratory Exam: NORMAL BREATHING PATTERN - Cardiovascular Exam Cardiovascular Exam: REGULAR RHYTHM, +S1, +S2 - GI/Abdominal Exam GI & Abdominal Exam: Soft, Tenderness (RLQ). absent: Distended, Firm, Guarding, Rigid - Extremities Exam Extremities Exam: Normal Inspection - Neurological Exam Neurological Exam: Alert, Awake, CN II-XII Intact, Oriented x3 - Psychiatric Exam Psychiatric exam: Normal Affect, Normal Mood - Skin Skin Exam: Dry, Intact, Normal Color, Warm Assessment and Plan - Assessment and Plan (Free Text) Assessment: 38F w/RLQ ab pain, N & V in setting of MRI done - negative for acute appendicitis Plan: Pain control Anti-emetic Abx Ok for regular diet OOBTC Ambulate Will DW Dr. Delmar Patel, PGY-2 <Alejandra Jacobsen - Last Filed: 03/09/18 19:57> Objective - Vital Signs/Intake and Output Vital Signs (last 24 hours): Temp Pulse Resp BP Pulse Ox 98.1 F 73 20 102/65 97 03/09/18 07:41 03/09/18 07:41 03/09/18 07:41 03/09/18 07:41 03/09/18 07:41 - Labs Labs: 03/08/18 07:21 03/08/18 07:21 Assessment and Plan - Assessment and Plan (Free Text) Plan: Seen and examined independent of resident staff. Sleeping comfortably when entering room. When awake states pain the same, band like distirbution obliquely from RUQ down toward midline pelvis. MRI reviewed and findings conveyed. No appendicitis. breech position noted. No general surgery needs. Per OB, likely pain form round ligament/adnexa. Discharge home and follow up with OB.
== END 2018-03-09 14:15 | disposition home or self-care (01) | DRG 781 ==
LOC: C.ER 16:27 → C.9E 20:29 → C.3T 21:06
PROVIDERS: ADMIT Surgery; ATTEND Surgery
DX: O26.892 Other specified pregnancy related conditions, second trimester (principal); R10.2 Pelvic and perineal pain; O99.112 Other diseases of the blood and blood-forming organs and certain disorders involving the immune mechanism complicating pregnancy, second trimester; D72.829 Elevated white blood cell count, unspecified; O21.0 Mild hyperemesis gravidarum; O09.522 Supervision of elderly multigravida, second trimester; Z3A.18 18 weeks gestation of pregnancy; Z87.59 Personal history of other complications of pregnancy, childbirth and the puerperium

== ENCOUNTER 2018-07-02 17:42 | Emergency (ER) | payer BC ==
[2018-07-02 19:15] LABS: SQUAMOUS EPITHIAL 9 /hpf (0-5); URINE BACTERIA RARE (<OCC); URINE BILIRUBIN NEGATIVE (NEGATIVE); URINE BLOOD NEGATIVE (NEGATIVE); URINE CALCIUM OXALATE CRYSTALS MOD /hpf (<OCC); URINE CLARITY Hazy (Clear); URINE COLOR Yellow (YELLOW); URINE GLUCOSE (UA) NORMAL (Normal); URINE LEUKOCYTE ESTERASE NEG Leu/uL (Negative); URINE PROTEIN 1+ mg/dL (NEGATIVE)
--- NOTE | 2018-07-02 19:30 | OBHP ---
Datetime: 07/02/2018 18:56 IP Adm Impression: , intrauterine ; No Active Labor IP Chief Complaint Other: vaginal pressure IP Admit Plan: Observation/Evaluation; Discharge home Admit Comment, IP Provider: Patient is Romanian-speaking; translation provided by Emily Baeza R.N. 38 y.o. LMP unsure; ANA ROSA 08/05/18, EGA 35w 1d, per patient: c/o intense vaginal pressure 01 00 hours - while sleeping. (+) voiding; denies dysuria or frequency. Pain scale then and now 8/10. La had sexual intercourse 2+ months ago. Patient admits to "doing a lot at home:cleaning, cooking,m t aking care of 4 y.o.. Drinks mixture of water, juice and sylvia aicha - maybe about 1.5 litre total for the day. (+) AFM; denies LOF, VB. (+) occ Ctx. care: [facility]:L ast visit 06/20/18; next pr enatal visit with ultrasound appointment, 07/09/18. Deneis any issues. P Ob: , 2016, male, 7+lb. [place]; no complications. 2001, Spont Ab, 4 months, with D_C; [place]; no o ther complications. 2011, Ectopic - right, [place] P CLINICAL LABORATORY SCIENCE PROFESSOR: 12 x monthly x 7 days. Denies STIs/ abnormal Pap/ myomata. PMH: denies asthma, DM, HTN, thyroid disorder PSH: D_C; 2011, laparoscopic right (partial?) salpingectomy -"the baby was stuck in the tube and t hey had to take out a piece of it" NKDA Meds: PNV Soc Hx: denies tobacco, illicit drug or EtOH use. 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 Fam Hx: Mother alive 69 - ovarina cancer survivor - S/P Hysterectomy. Father age 58 - le ukemia. One sister at age 35 - breast cancer. P.E.: as above. WD in mild discomfort. Awake, alert, oriented to time, person and place. Pleasan t and cooperative Assessment: 38 y.o. P1021, 35w 1d, vaginal pressure - not in labor. Maternal discomfort most likel y musculoskeletal in origin combined with dehydration. Patient encouraged to attempt to minimize hous elhold chores and to minimize p.o. intake of juice and soda, and to increase p.o. intake of water. P atient expressed an understanding and agrees. Category 1 tracing. Patient is clinically stable. NB: Patient also advised of importance of mammogram and appropriate breast evaluation after delivery. Plan: 1) IVFs: LR x 1 L 2) Send U/A Addendum: 1921 hours 1) Patient reports feeling a little better 2) U/A: S.G. 1.027; leuk esterase neg; all else wnl Plan: 1) Discharge home 2) As above. 3) Keep scheduled appointments 4) Reviewed S/S PTL PSH: Pelvic Type - PN: Adequate Extremities - PN: Normal Abdomen - PN: Normal Back - PN: Normal Breast - PN: Not Done Lungs - PN: Normal Heart - PN: Normal Thyroid - PN: Not Done Neurologic - PN: Normal HEENT - PN: Normal General - PN: Normal Presentation-Admit: Vertex FHR - Baseline A Provider: 140 Contraction Comments Provider: infrequent Comments, ACOG Physical Exam: Abdomen: Obese. Gravid. Soft. Non tender in all quadrants. Fundal heig ht 36 cm Extremities: No calf tenderness All other systems reviewed and are negative Gestation - Est Wks by US: 35w 1d EGA AdmitDate IP: 35.1 Vital Signs Provider: Reviewed; Within Normal Limits IP Chief Complaint: Other NICHD Variability Prov Fetus A: Moderate 6-25bpm NICHD Accel Fetus A IP Provider: 15X15 FHR Category Provider Fetus A: Category I NICHD Decel Fetus A IP Provider: None Dilatation, Provider: 0 Effacement, Provider: 0 Station, Provider: high Genitourinary Exam: Normal DTRs - PN: Not Done
[2018-07-02 23:54] VITALS: BP 108/70; PULSE 85; TEMP 98.9
== END 2018-07-02 19:37 | disposition home or self-care (01) ==
LOC: C.EROB 17:42
DX: O26.893 Other specified pregnancy related conditions, third trimester (principal); R10.2 Pelvic and perineal pain; E86.0 Dehydration; Z3A.35 35 weeks gestation of pregnancy

== ENCOUNTER 2018-07-27 01:08 | Emergency (ER) | payer BC ==
[2018-07-27 01:16] VITALS: BMI 30.9
[2018-07-27 01:42] LABS: SQUAMOUS EPITHIAL 18 /hpf (0-5); URINE BACTERIA RARE (<OCC); URINE BILIRUBIN NEGATIVE (NEGATIVE); URINE CLARITY Hazy (Clear); URINE COLOR Yellow (YELLOW); URINE GLUCOSE (UA) NORMAL (Normal); URINE LEUKOCYTE ESTERASE TRACE Leu/uL (Negative); URINE PROTEIN 1+ mg/dL (NEGATIVE); URINE UROBILINOGEN NORMAL mg/dL (0.2-1.0)
[2018-07-27 01:43] LABS: URINE BLOOD NEGATIVE (NEGATIVE)
[2018-07-27] MEDS ORDERED: Lactated Ringer's 1,000 ML IV ONE (02:41)
[2018-07-27] MEDS ORDERED: cefTRIAXone IV 1 gm in Dextros 1 GM in Dextrose 5% In Water 50 ML IVPB SCH (02:45)
[2018-07-27] MEDS ORDERED: Nalbuphine HCL 10 mg/ml Ampule IVP ONE (02:47)
[2018-07-27] MEDS ORDERED: Lactated Ringer's 1,000 ML IV SCH (03:00)
[2018-07-27 03:26] LABS: BASO # 0.1 K/uL (0.0-0.2); BASO % 0.6 % (0.0-2.0); EOS # 0.1 K/uL (0.0-0.7); EOS % 0.9 % (0.0-4.0); HEMOGLOBIN 12.5 g/dL (11.0-16.0); LYMPH # 1.7 K/uL (1.0-4.3); MEAN CELL VOLUME 94.4 fL (81.0-99.0); MEAN CORPUSCULAR HGB CONC 32.8 g/dL (33.0-37.0); MEAN PLATELET VOLUME 8.2 fL (7.2-11.7); MONO # 0.8 K/uL (0.0-0.8); MONO % 7.1 % (0.0-10.0); NEUT # 8.7 K/uL (1.8-7.0); NEUT % 76.4 % (50.0-75.0); RBC 4.02 Mil/uL (3.80-5.20); RED CELL DISTRIBUTION WIDTH 14.1 % (11.5-14.5); WHITE BLOOD COUNT 11.4 K/uL (4.8-10.8)
[2018-07-27 03:32] LABS: PROTHROMBIN TIME 10.8 SECONDS (9.7-12.2)
--- NOTE | 2018-07-27 03:35 | OBHP ---
Datetime: 07/27/2018 03:04 IP Adm Impression: Term, intrauterine ; No Active Labor; Intact Membranes IP Admit Plan: Observation/Evaluation Admit Comment, IP Provider: 38 yo female with an IUP at 38.5 weeks per LMP and US and prese nt with complain of suprapubic pain, back pains, and body aches. Denies fever, chills, LOF, VB or VD and admits to adequate FM. PMHX Negative PSHx laparoscopic Partial Salpingectomy for ectopic Meds PNV NKDA Social Hx Denies x 3 PE as noted above A_P Term R/O early labor, UTI Probable Dehydration since drinks little to no water Breech per [facility] records and states that last US baby was head down Bedside US done and Cephalic presentation confirmed Labs, UA, IVF ordered and pain medication prn NST reactive Continue close and maternal monitoring Will admit if progresses in labor Pelvic Type - PN: Adequate Extremities - PN: Normal Abdomen - PN: Normal Back - PN: Normal Breast - PN: Not Done Lungs - PN: Normal Heart - PN: Normal Thyroid - PN: Normal Neurologic - PN: Normal HEENT - PN: Normal General - PN: Normal Presentation-Admit: Vertex FHR - Baseline A Provider: 150-160 Membranes, Provider: Intact Contraction Comments Provider: Q 5 mins Gestation - Est Wks by US: 38.5 EGA AdmitDate IP: 38.5 Vital Signs Provider: Reviewed; Within Normal Limits IP Chief Complaint: Signs/symptoms UTI; Maternal discomfort NICHD Variability Prov Fetus A: Moderate 6-25bpm NICHD Accel Fetus A IP Provider: 10X10 NICHD Decel Fetus A IP Provider: None Dilatation, Provider: 1 Effacement, Provider: 30 Station, Provider: -3 Genitourinary Exam: Normal DTRs - PN: Normal (Annotations: Data stored by CPN on behalf of user) Datetime: 07/02/2018 18:56 IP Hx Assessment: The History has been Reviewed and is Current
[2018-07-27 03:38] LABS: ALB/GLOB RATIO 1.1 (1.0-2.1); ALBUMIN 3.5 g/dL (3.5-5.0); ALT/SGPT 15 U/L (9-52); AST/SGOT 20 U/L (14-36); BLOOD UREA NITROGEN 10 mg/dL (7-17); CALCIUM 8.6 mg/dl (8.6-10.4); GFR NON-AFRICAN AMERICAN > 60
--- NOTE | 2018-07-27 08:55 | OBDCSUM ---
Datetime: 07/27/2018 08:47 Discharged to, Provider: Home Follow up at, Provider: 1 week with primary senior counsel Disch Instr Activity: Normal activity Disch Instr Diet: Regular Discharge Instructions, Provider: Routine instructions given Discharge Diagnosis, Provider: False Labor - Undelivered Discharge Time: 07/27/2018 08:47 Follow up in weeks, Provider: 1 week Disch Referrals: None Contraception discussed, Prov: Yes Discharge Comment, Provider: Pt is 38 @ 38.5 weeks by LMP presented to the hospital with c/o suprapubic pain, back pain and body aches. Pt denies fevers, chills, LOF, VB or VD and admits to gemini fuentes . PMHx: none PSHx lap partial salpingectomy for ectopic MEDS: PNV NKDA; Social Hx Denies x 3. VSS: Afebrile CATEGORY 1 TRACING. NO CONTRACTIONS a/p PT ADMITTED FOR OBS D/T CONTRACTIONS. PT GIVEN IVF AND NUBAIN FOR PAIN.. SVE 07/10-3 ON ADMISSION A ND 07/10/3 ON DISCHARGE. PT NOT IN LABOR AND NO CERVICAL CHANGE NOTED. PLAN IS TO DISCHARGE PATIENT. PT TO FOLLOW UP IN ONE WEEK FOR CARE. - DISCHARGE INSTRUCTIONS GIVEN TO THE PATIENT. Datetime: 07/27/2018 08:29 Discharged to, Provider: Home Follow up at, Provider: U/s on Sunday as a schedule Disch Instr Activity: Normal activity Disch Instr Diet: Regular Discharge Time: 07/27/2018 08:20 Follow up in weeks, Provider: Clinic on Sunday as schedule Disch Activity Restrictions: No exercising; No lifting; No driving
[2018-07-27 20:14] VITALS: BP 113/68; PULSE 82; RESP 18; TEMP 98
== END 2018-07-27 08:30 | disposition home or self-care (01) ==
LOC: C.EROB 01:08
DX: O47.1 False labor at or after 37 completed weeks of gestation (principal); Z3A.38 38 weeks gestation of pregnancy
CPT/HCPCS: 80053; 81001; 85025; 85610; 85730; 86592; 86850; 86900; 96361; 96374; 99283; J0696; J7120

== ENCOUNTER 2018-07-30 15:12 | Emergency (ER) | payer BC ==
[2018-07-30] MEDS ORDERED: Dextrose 5%/Lactated Ringer's 1,000 ML IV SCH ×3 (16:30→17:07)
[2018-07-30] MEDS ORDERED: Nalbuphine HCL 10 mg/ml Ampule IVP ONE (17:00)
[2018-07-30] MEDS ORDERED: DiphenhydrAMINE 50 mg/ml Inj IVP ONE (17:00)
[2018-07-30 17:03] LABS: BASO # 0.1 K/uL (0.0-0.2); BASO % 0.4 % (0.0-2.0); EOS % 0.1 % (0.0-4.0); HEMOGLOBIN 13.3 g/dL (11.0-16.0); LYMPH # 0.7 K/uL (1.0-4.3); LYMPH % 4.7 % (20.0-40.0); MEAN CORPUSCULAR HEMOGLOBIN 30.8 pg (27.0-31.0); MEAN CORPUSCULAR HGB CONC 33.5 g/dL (33.0-37.0); MONO # 0.3 K/uL (0.0-0.8); NEUT # 14.5 K/uL (1.8-7.0); NEUT % 92.8 % (50.0-75.0); NRBC % 0.1 % (0.0-2.0); PLATELET COUNT 299 K/uL (130-400); RBC 4.32 Mil/uL (3.80-5.20); RED CELL DISTRIBUTION WIDTH 13.8 % (11.5-14.5); WHITE BLOOD COUNT 15.7 K/uL (4.8-10.8)
[2018-07-30 17:06] LABS: MEAN CELL VOLUME 91.9 fL (81.0-99.0)
[2018-07-30 17:16] LABS: ALB/GLOB RATIO 1.2 (1.0-2.1); ALBUMIN 3.8 g/dL (3.5-5.0); ALT/SGPT 13 U/L (9-52); AST/SGOT 27 U/L (14-36); BLOOD UREA NITROGEN 11 mg/dL (7-17); CALCIUM 9.1 mg/dl (8.6-10.4); GFR NON-AFRICAN AMERICAN > 60
[2018-07-30 19:33] LABS: BANDS 1 % (0-2); LYMPHOCYTE 7 % (20-40); MONOCYTE 4 % (0-10); NEUTROPHIL 88 % (50-75); PLATELET ESTIMATE NORMAL (NORMAL); TOTAL CELLS COUNTED 100
--- NOTE | 2018-07-30 21:05 | OBHP ---
Datetime: 07/30/2018 16:39 IP Adm Impression: Term, intrauterine IP Admit Plan: Observation/Evaluation Admit Comment, IP Provider: This is a 38 year old female with intrauterine of 39 weeks 1 day by LMP on 10/29/17 with ANA ROSA of 08/05/18 confirmed by sonogram on 12/18/2017 at 6 weeks 5 day s presenting to the hospital for epigastric pain that began this morning at approximately 10am. Patie nt states pain started suddenly, rated 10/10, intermittent, characterized as colicky, non radiating, denies any relieving factors and worsened with oral intake. She has associated symptoms of nausea, no n bloody, non bilious vomiting, headache and chills. She denies CP, SOB, fevers, diarrhea, constipati on, numbness, tingling, urinary complaints and swelling. Her last BM was this morning. She was seen i n the hospital last week for lower abdominal pain and states symptoms at that time were not as bad as today. She admits to movements as well as contractions and denies vaginal fluid leakage and va ginal bleeding. PMH: denies SH: denies drinking, smoking and drug use Sx: 2012 - laparoscopic left sided salpingectomy for ectopic Meds: none OBGYN history: denies any previous STD infections. Previous vaginal delivery on 09/29/15 with no co mplications of full term male. Ectopic in 2011 and previous . VSS, afebrile Physical Exam: AOx3 RRR CTA B/L epigastric tenderness is appreciated no leg swelling noted A/P: This is a 38 year old female with intrauterine of 39 weeks 1 day presenting to the hospital for epigastric pain. Will be observed and rule out labor. -CBC and CMP pending -D5 LR 1 liter -pain control with nubain and tylenol -benadryl for nausea Patient seen and case reviewed with attending, Dr. Manjeet Crockett, PGY1 Attending Note: patient seen, examined and evaluated by me with thte Resident. Patient is predomin antly [place]ian-speaking, translation performed by Dr. Brooke Gregg. - NB: "epigastric" tenderness is coincident with uterine contractions and not present when patient is examined when not danilo. it was explained to patient: provide pain medications and re-exami ne for progress of labor. If no further cervical dilatation is appreciated, she will be sent home. Ramos georges expresesd an understanding and agrees with plan. Category 1 tracing. Patient is otherwise clini manuelito stable. Pelvic Type - PN: Adequate Extremities - PN: Normal Abdomen - PN: Normal Back - PN: Normal Breast - PN: Not Done Lungs - PN: Normal Heart - PN: Normal Thyroid - PN: Normal Neurologic - PN: Normal HEENT - PN: Normal General - PN: Normal Weight - Estimated: 8lb 8oz Presentation-Admit: Vertex FHR - Baseline A Provider: 145 Contraction Comments Provider: 5-6 Comments, ACOG Physical Exam: Abdomen: Gravid. Firm with contractions. No epigastric or RUQ tenderne ss. Abdominal pain/ tenderness to palpation coincides with uterine contractions only at the level of the fundus, in the epigastric region. fundal heihgt 39 cm Bedside ultrsound: cephalic presentation confirmed. All other systems reviewed and are negative EGA AdmitDate IP: 39.1 Vital Signs Provider: Reviewed; Within Normal Limits IP Chief Complaint: Uterine contractions NICHD Variability Prov Fetus A: Minimal - Undetectable to <5bpm NICHD Accel Fetus A IP Provider: 15X15 FHR Category Provider Fetus A: Category I NICHD Decel Fetus A IP Provider: None Dilatation, Provider: 3 Effacement, Provider: 30 Station, Provider: -3 Genitourinary Exam: Normal DTRs - PN: Not Done
--- NOTE | 2018-07-30 22:14 | OBPN ---
Datetime: 07/30/2018 21:49 IP Progress Impression Other: No active labor IP Progress Plan: Discharge Contraction Comments Provider: 5-8 FHR - Baseline A Provider: 150 Presentation-Admit: Vertex IP Progress Note Comment: RHONDAE ID [id number] Patient awake, and hungry; wants to eat. (+) Upper abdominal pain, intermittent as before. (+) AFM . Denies LOF, VB. Not vomitted since on labor and delivery Assessment: 38 y.o. P1021, 39w 1d, not in labor. Explained to patient, gastric irritation and vomi ting is wnl for many parturients. Category 1 tracing. Clinically stable. Patient counseled to eat sm all, light, non greasy meal. Plan: 1) Discharge home 2) Reviewed S/S labor Vital Signs Provider: Reviewed; Within Normal Limits NICHD Accel Fetus A IP Provider: 15X15 FHR Category Provider Fetus A: Category I NICHD Variability Prov Fetus A: Moderate 6-25bpm Dilatation, Provider: 3 Effacement, Provider: 30 Station, Provider: -3 NICHD Decel Fetus A IP Provider: None Datetime: 07/30/2018 16:39 Weight - Estimated: 8lb 8oz Datetime: 07/27/2018 03:04 Membranes, Provider: Intact Gestation - Est Wks by US: 38.5
[2018-07-31 15:23] VITALS: BP 129/81; PULSE 87; RESP 16; TEMP 98
== END 2018-07-30 21:49 | disposition home or self-care (01) ==
LOC: C.EROB 15:12
DX: O26.893 Other specified pregnancy related conditions, third trimester (principal); R10.13 Epigastric pain; Z3A.39 39 weeks gestation of pregnancy
CPT/HCPCS: 80053; 85025; 96374; 96375; 99283; J1200; J7120

== ENCOUNTER 2018-08-02 03:14 | Inpatient (IN) | payer BC ==
[2018-08-02 03:50] VITALS: BMI 29.9
[2018-08-02 04:14] LABS: SQUAMOUS EPITHIAL 6 /hpf (0-5); URINE BILIRUBIN NEGATIVE (NEGATIVE); URINE BLOOD 1+ (NEGATIVE); URINE CLARITY Hazy (Clear); URINE COLOR Yellow (YELLOW); URINE GLUCOSE (UA) NORMAL (Normal); URINE LEUKOCYTE ESTERASE NEG Leu/uL (Negative); URINE PROTEIN 1+ mg/dL (NEGATIVE)
[2018-08-02] MEDS ORDERED: Oxytocin 30 UNIT 30 UNITS/500 ML BAG IV ONE ×2 (04:52→07:33)
[2018-08-02] MEDS ORDERED: Lactated Ringer's 1,000 ML IV ONE (04:52)
[2018-08-02] MEDS ORDERED: Lactated Ringer's 1,000 ML IV SCH (05:00)
--- NOTE | 2018-08-02 05:00 | OBHP ---
Datetime: 08/02/2018 04:35 IP Adm Impression: Term, intrauterine ; Intact Membranes Admit Comment, IP Provider: 38 yo female with an IUP at 39.4 weeks and presented with c/o o f contractions Q 5 mins since 2 AM. Denies LOF, VB or VD and admits to adequate FM. A/P Term Early labor NST reactive Minimal pain tolerance UA obtained and sent Labs and IV done Admit for anticipated vaginal delivery Pelvic Type - PN: Adequate Extremities - PN: Normal Abdomen - PN: Normal Back - PN: Normal Breast - PN: Not Done Lungs - PN: Normal Heart - PN: Normal Thyroid - PN: Normal Neurologic - PN: Normal HEENT - PN: Normal General - PN: Normal Presentation-Admit: Vertex FHR - Baseline A Provider: 140 Membranes, Provider: Intact Contraction Comments Provider: 5-7 Gestation - Est Wks by US: 19.4 IP Hx Assessment: The History has been Reviewed and is Current EGA AdmitDate IP: 39.4 Vital Signs Provider: Reviewed; Within Normal Limits IP Chief Complaint: Uterine contractions; Maternal discomfort NICHD Variability Prov Fetus A: Moderate 6-25bpm NICHD Accel Fetus A IP Provider: 10X10 FHR Category Provider Fetus A: Category I NICHD Decel Fetus A IP Provider: None Dilatation, Provider: 3-4 Effacement, Provider: 80 Station, Provider: -3 Genitourinary Exam: Normal DTRs - PN: Normal (Annotations: Data stored by CPN on behalf of user) Datetime: 07/30/2018 21:49 IP Admit Plan: Observation/Evaluation
--- NOTE | 2018-08-02 05:05 | OBADHP ---
Datetime: 08/02/2018 04:35 Admit Comment, IP Provider: 38 yo female with an IUP at 39.4 weeks and presented with c/o o f contractions Q 5 mins since 2 AM. Denies LOF, VB or VD and admits to adequate FM. A/P Term Early labor NST reactive Minimal pain tolerance UA with Dehydration Labs and IV done Admit for anticipated vaginal delivery Pelvic Type - PN: Adequate Extremities - PN: Normal Abdomen - PN: Normal Back - PN: Normal Breast - PN: Not Done Lungs - PN: Normal Heart - PN: Normal Thyroid - PN: Normal Neurologic - PN: Normal HEENT - PN: Normal General - PN: Normal Presentation-Admit: Vertex FHR - Baseline A Provider: 140 Membranes, Provider: Intact Contraction Comments Provider: 5-7 Gestation - Est Wks by US: 19.4 IP Hx Assessment: The History has been Reviewed and is Current Vital Signs Provider: Reviewed; Within Normal Limits IP Chief Complaint: Uterine contractions; Maternal discomfort NICHD Variability Prov Fetus A: Moderate 6-25bpm NICHD Accel Fetus A IP Provider: 10X10 FHR Category Provider Fetus A: Category I NICHD Decel Fetus A IP Provider: None Dilatation, Provider: 3-4 Effacement, Provider: 80 Station, Provider: -3 Genitourinary Exam: Normal DTRs - PN: Normal EGA AdmitDate IP: 39.4 IP Adm Impression: Term, intrauterine ; Intact Membranes Datetime: 07/30/2018 21:49 IP Admit Plan: Observation/Evaluation Datetime: 07/30/2018 16:39 Weight - Estimated: 8lb 8oz Comments, ACOG Physical Exam: Abdomen: Gravid. Firm with contractions. No epigastric or RUQ tenderne ss. Abdominal pain/ tenderness to palpation coincides with uterine contractions only at the level of the fundus, in the epigastric region. fundal heihgt 39 cm Bedside ultrsound: cephalic presentation confirmed. All other systems reviewed and are negative Datetime: 07/02/2018 18:56 IP Chief Complaint Other: vaginal pressure
[2018-08-02 05:11] LABS: BASO # 0.1 K/uL (0.0-0.2); BASO % 0.6 % (0.0-2.0); EOS # 0.1 K/uL (0.0-0.7); EOS % 1.5 % (0.0-4.0); HEMOGLOBIN 12.6 g/dL (11.0-16.0); LYMPH # 1.6 K/uL (1.0-4.3); LYMPH % 18.3 % (20.0-40.0); MEAN CELL VOLUME 93.4 fL (81.0-99.0); MEAN CORPUSCULAR HEMOGLOBIN 31.3 pg (27.0-31.0); MEAN CORPUSCULAR HGB CONC 33.6 g/dL (33.0-37.0); MEAN PLATELET VOLUME 7.7 fL (7.2-11.7); MONO # 0.9 K/uL (0.0-0.8); MONO % 9.5 % (0.0-10.0); NEUT # 6.3 K/uL (1.8-7.0); NEUT % 70.1 % (50.0-75.0); RBC 4.01 Mil/uL (3.80-5.20); RED CELL DISTRIBUTION WIDTH 13.8 % (11.5-14.5)
[2018-08-02 06:03] LABS: ALB/GLOB RATIO 1.1 (1.0-2.1); ALBUMIN 3.4 g/dL (3.5-5.0); ALT/SGPT 15 U/L (9-52); AST/SGOT 24 U/L (14-36); BLOOD UREA NITROGEN 14 mg/dL (7-17); CALCIUM 8.6 mg/dl (8.6-10.4); GFR NON-AFRICAN AMERICAN > 60
[2018-08-02] MEDS ORDERED: Bupivacaine HCl/FentaNYL Cit 0 ML EPI ONE (06:39)
[2018-08-02] MEDS ORDERED: Bupivacaine HCl/FentaNYL Cit 100 ML EPI ONE ×2 (07:51→08:14)
[2018-08-02] MEDS ORDERED: Oxycodone/Acetaminophen 5/325 mg Tab PO PRN ×2 (11:28)
--- NOTE | 2018-08-02 18:13 | OBDS ---
DELIVERY PERSONNEL Delivery Doctor: Jacki Burroughs MD Fruit Tester: Dileep Garcia RN Anesthesiologist: dr. Arciniega Resident: Dr. Tan MATERNAL INFORMATION Delivery Anesthesia: Epidural Medications in Delivery: Pitocin Estimated Blood Loss (ml): 500 Placenta Cultured: No Maternal Complications: None Provider Comments: , live female over intact perineum, DARREN position, compound presentation . placed on mother's abdomen; mouth and nose bulb-suctioned. Delayed cord clamping x 1 minute. Cord then doubly clamped and cut. Spontaneous delivery of placenta - grossly intact; 3 vessel cord Uterine exploration performed - emptied of blood and clots. Uterus contracted and firm, 2 FB above umbilicus Examination of cervix, vagina, perineum - laceration as above. Same repaired. Hemostasis assured. Mother tolerated procedure well. Mother and infant bonding; both in stable con dition EBL 500 mL Weight 8lb 4oz 's 9/9 LABOR SUMMARY EDC: 08/05/2018 00:00 No. Babies in Womb: 1 Attempted: No Labor Anesthesia: Epidural LABOR INFORMATION Reason for Induction: Not Applicable Onset of Labor: 08/02/2018 04:24 Complete Dilatation: 08/02/2018 09:50 Other Ripening Agents: n/a Oxytocin: Augmentation Group B Beta Strep: Negative Steroids Given: None Reason Steroids Not Administered: Not Applicable MEMBRANES Membranes Rupture Method: Spontaneous Rupture of Membranes: 08/02/2018 09:50 Length of Rupture (hrs): 0.90 Amniotic Fluid Color: Clear Amniotic Fluid Amount: Small Amniotic Fluid Odor: Normal STAGES OF LABOR Stage 1 hrs: 5 Stage 1 min: 26 Stage 2 hrs: 0 Stage 2 min: 54 Stage 3 hrs: 0 Stage 3 min: 17 Total Time in Labor hrs: 6 Total Time in Labor min: 37 VAGINAL DELIVERY Episiotomy: None Laceration Extension: Second Degree Laceration Type: Perineal Laceration Repair: Yes Laceration Repair Note: 2-0 chromic, in routine fashion. Hemostasis assured. Patient tolerated proce dure well. In stable. condition Initial Vag Sponge Count: 10 Final Vag Sponge Count: 10 Initial Vag Sharps Count: 0 Final Vag Sharps Count: 1 Sponge Count Correct: Yes Sharps Count Correct: Yes BABY A INFORMATION Delivery Date/Time: 08/02/2018 10:44 Method of Delivery: Vaginal Born in Route : No : N/A Forceps: N/A Vacuum Extraction: N/A Shoulder Dystocia : No SHOULDER DYSTOCIA BABY A Delivery Date/Time: 08/02/2018 10:44 PRESENTATION/POSITION BABY A Presentation: Compound Cephalic Presentation: Vertex Vertex Position: Left Occipital Anterior Breech Presentation: N/A PLACENTA INFORMATION BABY A Placenta Delivery Time : 08/02/2018 11:01 Placenta Method of Delivery: Spontaneous Placenta Status: Delivered SCORES BABY A Heart Rate 1 min: >100 bpm Resp Effort 1 min: Good Cry Reflex Irritability 1 min: Cough or Sneeze or Pulls Away Muscle Tone 1 min: Active Motion Color 1 min: Body [place], Extremities Blue SCORE 1 MIN: 9 Heart Rate 5 min: >100 bpm Resp Effort 5 min: Good Cry Reflex Irritability 5 min: Cough or Sneeze or Pulls Away Muscle Tone 5 min: Active Motion Color 5 min: Body [place], Extremities Blue SCORE 5 MIN: 9 INFANT INFORMATION BABY A Gestational Age at Delivery: 39.4 Gestational Status: Term Infant Outcome : Liveborn Infant Condition : Stable Infant Sex: Female IDENTIFICATION/MEDS BABY A ID Band Number: [id number] ID Band Location: Left Leg; Left Arm Sensor Applied: Yes Sensor Number: [id number] Sensor Location : Cord Clamp Vitamin K Given : Aquamephyton 1 mg IM; Left Thigh Erythromycin Given: Given Both Eyes WEIGHT/LENGTH BABY A Infant Birthweight (gms): 3745 Weight (lb): 8 Infant Weight (oz): 4 Length Inches: 20.00 Length cms: 50.8 CORD INFORMATION BABY A No. Cord Vessels: 3 Nuchal Cord : N/A Cord Blood Taken: Yes Suction: Mouth; Nose ASSESSMENT BABY A Complications: None Physical Findings at Delivery: Within Normal Limits Respirations: Appears Normal [employer] Developer/ALS Called : No Infant Care By: amalia barbour rn Transferred To: Remains with Mother
--- NOTE | 2018-08-02 18:32 | OBPN ---
Datetime: 08/02/2018 18:10 IP Progress Note Comment: Patient obstetric histromarita was reasssessed for clarification with the ambar galece of Dr. Rima Yañez, who is bilingual, serving as storage architect - first , age 19 or 20, delivered a male infant, 800 grams. Infant survived until 2009, a t which time child at the age of 11 from pulmonary complications ([place]) - 2011, Right ectopic ([place]) - 09/29/15, female, 7 lb [facility] no complications - 08/02/18, female, 8lb 4oz, [facility], no complications. Patient is therefore . Datetime: 08/02/2018 04:35 Membranes, Provider: Intact Contraction Comments Provider: 5-7 FHR - Baseline A Provider: 140 Gestation - Est Wks by US: 39.4 Presentation-Admit: Vertex Vital Signs Provider: Reviewed; Within Normal Limits NICHD Accel Fetus A IP Provider: 10X10 FHR Category Provider Fetus A: Category I NICHD Variability Prov Fetus A: Moderate 6-25bpm Dilatation, Provider: 3-4 Effacement, Provider: 80 Station, Provider: -3 NICHD Decel Fetus A IP Provider: None
[2018-08-03 07:36] LABS: BASO % 0.4 % (0.0-2.0); EOS # 0.2 K/uL (0.0-0.7); EOS % 1.5 % (0.0-4.0); HEMOGLOBIN 11.7 g/dL (11.0-16.0); LYMPH # 2.1 K/uL (1.0-4.3); LYMPH % 17.3 % (20.0-40.0); MEAN CORPUSCULAR HEMOGLOBIN 31.8 pg (27.0-31.0); MEAN CORPUSCULAR HGB CONC 33.5 g/dL (33.0-37.0); MONO # 0.7 K/uL (0.0-0.8); MONO % 5.6 % (0.0-10.0); NEUT # 9.1 K/uL (1.8-7.0); NEUT % 75.2 % (50.0-75.0); NRBC % 0.1 % (0.0-2.0); RBC 3.67 Mil/uL (3.80-5.20); RED CELL DISTRIBUTION WIDTH 14.2 % (11.5-14.5); WHITE BLOOD COUNT 12.1 K/uL (4.8-10.8)
[2018-08-03] MEDS: Multiple Vitamins Tab PO SCH (09:22)
--- NOTE | 2018-08-03 09:29 | OBPPN ---
Datetime: 08/03/2018 09:24 PP Pain Prov: Within normal limits PP Abdomen/Uterus Prov: Normal PP Extremities Prov: Normal PP Comments Phys Exam Prov: Fundus firm at 1 fingerbreath above umbilicus PP Impression Prov: Normal progression PP Plan Prov: Continue present management PP Progress Note Prov: A/P: s/p at 39.4wks - PPD#1 VSS Reports perineal discomfort- dibucaine spray/witch beau/perineal wash instructions Normal progression Encourage ambulation Anticipate DC home tomorrow IP PP Procedures: None Vital Signs Provider PP: Reviewed; Within Normal Limits
[2018-08-04] MEDS ORDERED: Benzocaine/Menthol 20%-0.5% Topical Spray (60 ml) TOP PRN (07:14)
[2018-08-04] MEDS: Multiple Vitamins Tab PO SCH (09:12)
[2018-08-04 10:28] VITALS: BP 121/78; PULSE 100; RESP 18; O2SAT 98
--- NOTE | 2018-08-04 12:05 | OBDCSUM ---
Datetime: 08/04/2018 07:36 Discharged to, Provider: Home Follow up at, Provider: [facility] Disch Instr Activity: Normal activity; May Shower Disch Instr Diet: Regular Discharge Diet restrict Prov: none Discharge Instructions, Provider: Routine instructions given Discharge Diagnosis, Provider: Term Delivered Discharge Time: 08/04/2018 13:00 Follow up in weeks, Provider: 6 weeks Disch Referrals: None Contraception discussed, Prov: Yes Disch Activity Restrictions: No exercising; No lifting; No driving; No sexual activity; Nothing in v agina - Portis, tampons, douche Discharge Comment, Provider: PPD # 2 S/P without complications Fundus firm, non-tender and below umbilicus Perineal care reviewed with patient and verbalized understanding and encouraged to continue Stable and Satisfactory condition and recovery Advise to increase po water intake D/C home with instructions and Rx for Motrin for prn use Follow up in Clinic in 6 weeks or as needed. Contraception after Delivery: Tubal Ligation
[2018-08-04 18:23] VITALS: TEMP 99
== END 2018-08-04 14:21 | disposition home or self-care (01) | DRG 807 ==
LOC: C.EROB 03:14 → C.4D 04:30 → C.4M 13:44
PROVIDERS: ADMIT Obstetrics & Gynecology; ATTEND Obstetrics & Gynecology
PROC: 0KQM0ZZ Repair Perineum Muscle, Open Approach (ICD-10-PCS; principal; 2018-08-02)
PROC: 10E0XZZ Delivery of Products of Conception, External Approach (ICD-10-PCS; 2018-08-02)
DX: O32.6XX0 Maternal care for compound presentation, not applicable or unspecified (principal); Z37.0 Single live birth; O70.1 Second degree perineal laceration during delivery; Z3A.39 39 weeks gestation of pregnancy